=== PATIENT | male | born 1985 | race African-American/Black ===

== ENCOUNTER 2024-02-11 14:05 | Emergency (ER) | payer OTHER, MEDICAID, SELFPAY ==
--- NOTE | ~2024-02-11 | XR_ITS ---
XR knee RT min 4V 02/11/2024 15:10 Indication: Right knee pain Procedure: 4 views right knee Comparison: No prior studies for comparison. Findings: No fracture, subluxation or dislocation. No significant joint effusion. No foreign bodies. Impression: 1: No acute bone or joint abnormality. Reviewed, dictated and finalized at location A. Impression: 1: No acute bone or joint abnormality.
[2024-02-11 14:06] VITALS: PULSE 82; RESP 16; TEMP 36.8; O2SAT 98
--- NOTE | 2024-02-11 15:16 | ED.LOWEXIN ---
HPI - Extremity Injury (Lower) General Chief Complaint: Extremity Injury, Lower Stated Complaint: right knee pain Time Seen by Provider: 02/11/24 15:16 Source: patient Mode of arrival: ambulatory Limitations: no limitations History of Present Illness HPI Narrative: Luca is a 38-year-old male patient presenting to the emergency room today with complaints of right knee pain. He reports his right knee gave out while he was walking today. Review of Systems Review of Systems: Pertinent positives per HPI. Patient denies any fever, chills, rash, headache, visual changes, dizziness, cough, runny nose, sore throat, shortness of breath, chest pain, palpitations, nausea, vomiting, diarrhea, constipation, abdominal pain, or any urinary issues. PMFSH Comments At the time of my signature, I reviewed and agree with the nursing past medical, surgical, social, and family history. There is no relevant family history pertinent to the patient complaint. Exam Narrative: General: Well-developed, well nourished, in no apparent distress Head: Normocephalic, atraumatic. Cardio: Regular rate and rhythm, s1 and s2 normal, no murmur appreciated. Resp: Clear to auscultation bilaterally, no rhonchi, rales, wheezing or rubs. Musculoskeletal: No deformity, non-tender to palpation, negative posterior and anterior drawer test, no pain with valgus and varus testing, grossly normal range of motion, muscle strength strong and equal, peripheral pulse strong, no edema, no cyanosis, normal gait and station Course Course Emergency Course: Portions of this record may have been created with voice recognition software. Vital Signs Vital signs: Vital Signs Temperature 36.8 C 02/11/24 14:06 Pulse Rate 82 02/11/24 14:06 Respiratory Rate 16 02/11/24 14:06 Pulse Oximetry 98 02/11/24 14:06 Temperature 36.8 C 02/11/24 14:06 Pulse Rate 82 02/11/24 14:06 Respiratory Rate 16 02/11/24 14:06 Pulse Oximetry 98 02/11/24 14:06 Vital signs reviewed MDM - Extremity Injury (Lower) MDM Narrative Medical decision making narrative: At the time of visit patient is resting comfortably on the exam table. Patient appears to be nontoxic. Diagnostics: X-ray of the right knee is negative for any sign of fracture, malalignment, osteoarthritis, or effusion. Plan: I suspect patient has acute knee pain. He is requesting crutches. Will send crutches and give him an Eugene wrap. Discussed use of a hinged knee brace when up ambulating. Follow-up with his primary care provider Supportive measures were discussed with the patient and they voiced understanding discharge instructions and agrees to treatment plan. Return precautions reviewed Differential Diagnosis Differential diagnosis: Likely acute internal derangement of knee and other (Knee sprain, meniscus tear) Discharge Plan Discharge Clinical Impression: Acute knee pain Qualifiers: Laterality: right Qualified Code(s): M25.561 - Pain in right knee Patient Disposition: Home, Self-Care Condition: Stable Instructions: Antibiotic Form, Knee Pain (ED) Additional Instructions: X-rays negative for any sign of fracture, malalignment, osteoarthritis or effusion Use crutches as directed May take Tylenol/Motrin as needed for pain Wear hinged knee brace when up ambulating Follow-up with your primary care provider in 1 week Follow-up/Referrals: PHYSICIAN,SHEETMETAL WORKER [Primary Care Provider] - Time of Disposition: 15:25 Quality NIHSS Nursing Documentation ED NIHSS nursing documentation: reviewed/agree
[2024-02-11 15:49] VITALS: BP 130/80; PULSE 80; RESP 16; TEMP 36.6; O2SAT 98
== END 2024-02-11 15:51 | disposition home or self-care (01) ==
LOC: ANHED 15:37
PROVIDERS: Emergency Provider Nurse Practitioner Family
DX: M25.561 Pain in right knee (principal)
CPT/HCPCS: 73564; 99283